=== PATIENT | female | born 1980 | race Caucasian/White ===

== ENCOUNTER 2024-11-29 13:58 | Observation (INO) ==
[2024-11-29] MEDS: fentaNYL 100 MCG/2 ML VIAL IV ONE ×2 (16:06→18:46)
[2024-11-29 19:39] LABS: Basophils # (Auto) 0.04 K/mcL (0.00-0.30); Basophils % (Auto) 0.3 % (0.0-2.0); Eosinophils % (Auto) 1.7 % (0.0-7.0); Hematocrit 38.7 % (34.1-44.9); Hemoglobin 13.3 g/dL (11.2-15.7); Lymphocytes # (Auto) 2.11 K/mcL (1.50-4.80); Lymphocytes % (Auto) 18.3 % (15.5-49.0); Mean Cell Volume 89.6 fL (80.0-100.0); Mean Corpuscular HGB Conc 34.4 g/dL (31.0-36.0); Mean Platelet Volume 9.2 fL (8.8-12.5); Monocytes # (Auto) 0.82 K/mcL (0.10-0.90); Monocytes % (Auto) 7.1 % (1.0-12.0); Neutrophils % (Auto) 72.4 % (38.0-78.0); Platelet Count 298 K/mcL (140-440); RBC 4.32 M/mcL (3.59-5.38); Red Cell Distribution Width 12.5 % (11.5-14.5); WBC 11.5 K/mcL (4.5-11.0)
[2024-11-29] MEDS: ONDANSETRON 4 MG/2 ML VIAL IV PRN (19:48)
[2024-11-29 20:00] LABS: ALT/SGPT 13 U/L (<40); AST/SGOT 16 U/L (<32); Albumin 4.1 gm/dL (3.2-5.2); Albumin/Globulin Ratio 1.5 (1.0-2.3); Alkaline Phosphatase 63 U/L (39-117); Bilirubin,Total 0.3 mg/dL (0.1-1.0); Blood Urea Nitrogen 10 mg/dL (6-20); Carbon Dioxide 22 mmol/L (22-30); Chloride 106 mmol/L (96-108); Globulin 2.8 gm/dL (2.2-3.7); Glomerular Filtration Rate 106; Glucose 104 mg/dL (70-105); Potassium 3.8 mmol/L (3.3-5.1); Sodium 139 mmol/L (133-145)
[2024-11-29] MEDS: morphine 2 MG/ML VIAL IV PRN (21:29)
[2024-11-30] MEDS ORDERED: MIDAZOLAM 2 MG/2 ML VIAL ONE ×2 (16:12→17:30)
[2024-11-30] MEDS ORDERED: KETAMINE 50 MG/ML Syringe IV ONE (16:12)
[2024-11-30] MEDS ORDERED: PROPOFOL 200 MG/20 ML VIAL IV ONE ×3 (16:12→18:19)
[2024-11-30] MEDS ORDERED: TRANEXAMIC ACID 1,000 MG/10 ML VIAL ONE (16:14)
[2024-11-30] MEDS ORDERED: KETOROLAC 30 MG/ML VIAL ONE (16:14)
[2024-11-30] MEDS ORDERED: LIDOCAINE 2% PF 5 ML VIAL ONE (16:14)
[2024-11-30] MEDS ORDERED: GLYCOPYRROLATE 0.2 MG/ML VIAL IV ONE (16:14)
[2024-11-30] MEDS ORDERED: DEXAMETHASONE 10 MG/ML VIAL ONE (16:14)
[2024-11-30] MEDS ORDERED: ONDANSETRON 4 MG/2 ML VIAL ONE (16:14)
[2024-11-30] MEDS ORDERED: PHENYLephrine 1 MG/10 ML SYRINGE (ANEST) ONE (16:14)
[2024-11-30] MEDS ORDERED: BUPIVACAINE PF 0.5% 10 ML VIAL ONE (16:37)
[2024-11-30] MEDS: ceFAZolin 2 GM in DEXTROSE 5% IN WATER 50 ML IV SCH (17:24)
[2024-11-30] MEDS ORDERED: ROPIVACAINE HCL/PF 30 ML VIAL IJ ONE (18:02)
[2024-11-30] MEDS ORDERED: DROPERIDOL 5 MG/2 ML VIAL IV PRN (18:08)
[2024-11-30] MEDS ORDERED: HYDROmorphone 0.5 MG/0.5 ML SYRINGE IV PRN (18:08)
[2024-11-30] MEDS ORDERED: IPRATROPIUM/ALBUTEROL 3 ML AMPUL.NEB NEB PRN (18:08)
[2024-11-30] MEDS ORDERED: fentaNYL 100 MCG/2 ML VIAL IV PRN (18:08)
[2024-11-30] MEDS ORDERED: morphine 4 MG/ML VIAL IV PRN (19:37)
[2024-11-30] MEDS: 0.9 % SODIUM CHLORIDE 10 ML SYRINGE IV SCH (20:28)
[2024-11-30] MEDS: LACTATED RINGERS 1,000 ML IV SCH ×2 (21:13→21:39)
[2024-12-01] MEDS: SCOPOLAMINE 1 PATCH PATCH TOPICAL PRN (00:31)
[2024-12-01] MEDS: HYDROcodone/APAP 10/325MG TABLET PO PRN (00:31)
[2024-12-01] MEDS: ONDANSETRON 4 MG ODT TABLET SL PRN (08:58)
[2024-12-01] MEDS: DOCUSATE SODIUM 100 MG CAPSULE PO SCH (08:58)
[2024-12-01] MEDS: FLUoxetine HCL 20 MG CAPSULE PO SCH (08:59)
[2024-12-01] MEDS: PROPRANOLOL 80 MG CAP.XL.24H PO SCH (08:59)
[2024-12-01 12:38] VITALS: TEMP 98.5; O2SAT 98
== END 2024-12-01 14:59 | disposition home or self-care (01) ==
LOC: ED 13:58 → MEDSUR 13:58
PROVIDERS: ADMIT Orthopaedic Surgery Sports Medicine; ATTEND Orthopaedic Surgery Sports Medicine